=== PATIENT | female | born 1985 | race American Indian/Alaskan Native ===

== ENCOUNTER 2020-09-14 15:11 | Emergency (ER) | payer SELFPAY ==
--- NOTE | 2020-09-14 17:10 | Event Note ---
ED Screening Note Date of service: 09/14/20 Time: 17:09 ED Screening Note: Patient complains of right sided abdominal pain States she was having right flank pain about 3 weeks ago was seen by her doctor on 08/30/2020 and treated for UTI-patient unsure of the name of antibiotic States pain improved and then worsened after 2 days after completing antibiotics History of kidney stones and states this pain feels similar This initial assessment/diagnostic orders/clinical plan/treatment(s) is/are subject to change based on patients health status, clinical progression and re- assessment by fellow clinical providers in the ED. Further treatment and workup at subsequent clinical providers discretion. Patient/guardian urged not to elope from the ED as their condition may be serious if not clinically assessed and managed. Initial orders include: Labs CT scan likely
[2020-09-14 17:32] LABS: Mean Corpuscular HGB Conc 30 % (30-34); Platelet Count 615 K/mm3 (140-440)
[2020-09-14 17:33] LABS: Hematocrit 28.2 % (30.3-42.9); Hemoglobin 8.3 gm/dl (10.1-14.3); Mean Corpuscular Volume 64 fl (79-97); Red Cell Distribution Width 20.7 % (13.2-15.2)
[2020-09-14 17:46] LABS: Alanine Aminotransferase 9 units/L (7-56); Albumin 3.1 g/dL (3.9-5); Blood Urea Nitrogen 6 mg/dL (7-17); Calcium 8.5 mg/dL (8.4-10.2); Hemolysis Index 0
[2020-09-14] MEDS ORDERED: SODIUM CHLORIDE 0.9% 1000 ML 1,000 ML IV ONE ×2 (17:48→21:55)
[2020-09-14] MEDS ORDERED: MORPHINE 4 MG/1 ML INJ IV ONE (17:48)
[2020-09-14] MEDS ORDERED: KETOROLAC 30 MG/1 ML INJ IV ONE (17:48)
[2020-09-14] MEDS ORDERED: ONDANSETRON 4 MG/2 ML INJ IV ONE (17:48)
[2020-09-14 17:51] LABS: BUN/Creatinine Ratio 10
[2020-09-14] MEDS ORDERED: PIPERACIL/TAZOBACTA 4.5/NS 100 4.5 GM/100 ML VIAL IV ONE (17:54)
[2020-09-14] MEDS ORDERED: SODIUM CHLORIDE 0.9% 1000 ML IV SOLN IV ONE (17:55)
--- NOTE | 2020-09-14 17:58 | Emergency Department Report ---
<SAM PERALTA - Last Filed: 09/14/20 21:56> ED Abdominal Pain HPI - General Chief Complaint: Abdominal Pain Stated Complaint: ABD PAIN Time Seen by Provider: 09/14/20 17:09 - Related Data Previous Rx's Medication Instructions Recorded Last Taken Type Acetaminophen/Codeine 1 tab PO Q6H PRN #15 tab 04/21/14 Unknown Rx [Acetaminophen-Codeine #3 TAB] Cyclobenzaprine [Flexeril 10mg] 10 mg PO TID PRN #15 tablet 04/21/[address] [Clifford Bassett] 75 mg PO TID #21 tablet 04/21/14 Unknown Rx Allergies Allergy/AdvReac Type Severity Reaction Status Date / Time No Known Allergies Allergy Unverified 04/21/14 16:29 ED Past Medical Hx - Medications Home Medications: Home Medications Medication Instructions Recorded Confirmed Last Taken Type Acetaminophen/Codeine 1 tab PO Q6H PRN #15 tab 04/21/14 Unknown Rx [Acetaminophen-Codeine #3 TAB] Cyclobenzaprine [Flexeril 10mg] 10 mg PO TID PRN #15 tablet 04/21/[address] [Clifford Bassett] 75 mg PO TID #21 tablet 04/21/14 Unknown Rx ED Course - Reevaluation(s) Reevaluation #1: 09/14/20 21:58 Patient found to have evidence of SIRS/sepsis systemic inflammatory response syndrome, with obstructive hydronephrosis. This is an emergent medical/surgical condition, which cannot be definitively managed at this hospital, as we do not have urology available for consultation. I have gone back and personally evaluated the patient, and counseled her regarding her CT scan findings and laboratory studies. We have recommended emergent transfer for urologic consultation, which we are not able to provide at this hospital. We do not have urology available for ER consultation. Patient has provided consent for transfer for definitive care. Physician assistant Reveles has coordinated with urologist, Dr. Mabry at [facility], for transfer for definitive services not available. Currently, the patient is comfortable, resting comfortably, hemodynamically stable, protecting her airway, and suitable for medical transportation for definitive care. ED Medical Decision Making - Lab Data Result diagrams: 09/14/20 17:04 09/14/20 17:04 Vital Signs 09/14/20 09/14/20 15:23 20:28 Temperature 98.2 F Pulse Rate 121 H 96 H Respiratory 16 16 Rate Blood Pressure 110/67 [Right] O2 Sat by Pulse 100 100 Oximetry Lab Results 09/14/20 09/14/20 09/14/20 Range/Units 17:04 17:04 17:04 WBC 18.8 H (4.5-11.0) K/mm3 RBC 4.40 (3.65-5.03) M/mm3 Hgb 8.3 L (10.1-14.3) gm/dl Hct 28.2 L (30.3-42.9) % MCV 64 L (79-97) fl MCH 19 L (28-32) pg MCHC 30 (30-34) % RDW 20.7 H (13.2-15.2) % Plt Count 615 H (140-440) K/mm3 Add Manual Diff Complete Total Counted 100 Seg Neutrophils % [employer] Specialist Seg Neuts % (Manual) 93.0 H (40.0-70.0) % Lymphocytes % (Manual) 4.0 L (13.4-35.0) % Monocytes % (Manual) 3.0 (0.0-7.3) % Promyelocytes % 0 % Nucleated RBC % Not Reportable Seg Neutrophils # Man 17.5 H (1.8-7.7) K/mm3 Band Neutrophils # 0.0 K/mm3 Lymphocytes # (Manual) 0.8 L (1.2-5.4) K/mm3 Abs React Lymphs (Man) 0.0 K/mm3 Monocytes # (Manual) 0.6 (0.0-0.8) K/mm3 Eosinophils # (Manual) 0.0 (0.0-0.4) K/mm3 Basophils # (Manual) 0.0 (0.0-0.1) K/mm3 Metamyelocytes # 0.0 K/mm3 Myelocytes # 0.0 K/mm3 Promyelocytes # 0.0 K/mm3 Blast Cells # 0.0 K/mm3 WBC Morphology Not Reportable Hypersegmented Neuts Not Reportable Hyposegmented Neuts Not Reportable Hypogranular Neuts Not Reportable Smudge Cells Not Reportable Toxic Granulation Not Reportable Toxic Vacuolation Not Reportable Dohle Bodies Not Reportable Pelger-Huet Anomaly Not Reportable Lakshmi Rods Not Reportable Platelet Estimate Consistent w auto Clumped Platelets Not Reportable Plt Clumps, EDTA Not Reportable Large Platelets Not Reportable Giant Platelets Not Reportable Platelet Satelliting Not Reportable Plt Morphology Comment Not Reportable RBC Morphology Not Reportable Dimorphic RBCs Not Reportable Polychromasia Not Reportable Hypochromasia 2+ Poikilocytosis Not Reportable Anisocytosis 1+ Microcytosis Not Reportable Macrocytosis Not Reportable Spherocytes Not Reportable Pappenheimer Bodies Not Reportable Sickle Cells Not Reportable Target Cells Not Reportable Tear Drop Cells Not Reportable Ovalocytes Not Reportable Helmet Cells Not Reportable Brito-Choteau Bodies Not Reportable Wink Rings Not Reportable Thuy Cells Not Reportable Bite Cells Not Reportable Crenated Cell Not Reportable Elliptocytes Not Reportable Acanthocytes (Spur) Not Reportable Rouleaux Not Reportable Hemoglobin C Crystals Not Reportable Schistocytes Not Reportable Malaria parasites Not Reportable Luke Bodies Not Reportable Hem Pathologist Commnt No Sodium 132 L (137-145) mmol/L Potassium 3.7 (3.6-5.0) mmol/L Chloride 100.1 (98-107) mmol/L Carbon Dioxide 24 (22-30) mmol/L Anion Gap 12 mmol/L BUN 6 L (7-17) mg/dL Creatinine 0.6 (0.6-1.2) mg/dL Estimated GFR > 60 ml/min BUN/Creatinine Ratio 10 % Glucose 102 H (65-100) mg/dL Lactic Acid (0.7-2.0) mmol/L Calcium 8.5 (8.4-10.2) mg/dL Total Bilirubin 0.20 (0.1-1.2) mg/dL AST 11 (5-40) units/L ALT 9 (7-56) units/L Alkaline Phosphatase 113 (35-129) units/L Total Protein 8.9 H (6.3-8.2) g/dL Albumin 3.1 L (3.9-5) g/dL Albumin/Globulin Ratio 0.5 % HCG, Quant < 2 (0-4) mIU/mL Urine Color (Yellow) Urine Turbidity (Clear) Urine pH (5.0-7.0) Ur Specific [place] (1.003-1.030) Urine Protein (Negative) mg/dL Urine Glucose (UA) (Negative) mg/dL Urine Ketones (Negative) mg/dL Urine Blood (Negative) Urine Nitrite (Negative) Urine Bilirubin (Negative) Urine Urobilinogen (<2.0) mg/dL Ur Leukocyte Esterase (Negative) Urine WBC (Auto) (0.0-6.0) /HPF Urine RBC (Auto) (0.0-6.0) /HPF U Epithel Cells (Auto) (0-13.0) /HPF 09/14/20 09/14/20 Range/Units 18:01 Unknown WBC (4.5-11.0) K/mm3 RBC (3.65-5.03) M/mm3 Hgb (10.1-14.3) gm/dl Hct (30.3-42.9) % MCV (79-97) fl MCH (28-32) pg MCHC (30-34) % RDW (13.2-15.2) % Plt Count (140-440) K/mm3 Add Manual Diff Total Counted Seg Neutrophils % Seg Neuts % (Manual) (40.0-70.0) % Lymphocytes % (Manual) (13.4-35.0) % Monocytes % (Manual) (0.0-7.3) % Promyelocytes % % Nucleated RBC % Seg Neutrophils # Man (1.8-7.7) K/mm3 Band Neutrophils # K/mm3 Lymphocytes # (Manual) (1.2-5.4) K/mm3 Abs React Lymphs (Man) K/mm3 Monocytes # (Manual) (0.0-0.8) K/mm3 Eosinophils # (Manual) (0.0-0.4) K/mm3 Basophils # (Manual) (0.0-0.1) K/mm3 Metamyelocytes # K/mm3 Myelocytes # K/mm3 Promyelocytes # K/mm3 Blast Cells # K/mm3 WBC Morphology Hypersegmented Neuts Hyposegmented Neuts Hypogranular Neuts Smudge Cells Toxic Granulation Toxic Vacuolation Dohle Bodies Pelger-Huet Anomaly Lakshmi Rods Platelet Estimate Clumped Platelets Plt Clumps, EDTA Large Platelets Giant Platelets Platelet Satelliting Plt Morphology Comment RBC Morphology Dimorphic RBCs Polychromasia Hypochromasia Poikilocytosis Anisocytosis Microcytosis Macrocytosis Spherocytes Pappenheimer Bodies Sickle Cells Target Cells Tear Drop Cells Ovalocytes Helmet Cells Brito-Choteau Bodies Wink Rings Thuy Cells Bite Cells Crenated Cell Elliptocytes Acanthocytes (Spur) Rouleaux Hemoglobin C Crystals Schistocytes Malaria parasites Luke Bodies Hem Pathologist Commnt Sodium (137-145) mmol/L Potassium (3.6-5.0) mmol/L Chloride (98-107) mmol/L Carbon Dioxide (22-30) mmol/L Anion Gap mmol/L BUN (7-17) mg/dL Creatinine (0.6-1.2) mg/dL Estimated GFR ml/min BUN/Creatinine Ratio % Glucose (65-100) mg/dL Lactic Acid 1.20 (0.7-2.0) mmol/L Calcium (8.4-10.2) mg/dL Total Bilirubin (0.1-1.2) mg/dL AST (5-40) units/L ALT (7-56) units/L Alkaline Phosphatase (35-129) units/L Total Protein (6.3-8.2) g/dL Albumin (3.9-5) g/dL Albumin/Globulin Ratio % HCG, Quant (0-4) mIU/mL Urine Color Yellow (Yellow) Urine Turbidity Cloudy (Clear) Urine pH 8.0 H (5.0-7.0) Ur Specific [place] 1.012 (1.003-1.030) Urine Protein 30 mg/dl (Negative) mg/dL Urine Glucose (UA) Neg (Negative) mg/dL Urine Ketones Neg (Negative) mg/dL Urine Blood Neg (Negative) Urine Nitrite Neg (Negative) Urine Bilirubin Neg (Negative) Urine Urobilinogen < 2.0 (<2.0) mg/dL Ur Leukocyte Esterase Lg (Negative) Urine WBC (Auto) > 182.0 H (0.0-6.0) /HPF Urine RBC (Auto) 10.0 (0.0-6.0) /HPF U Epithel Cells (Auto) 2.0 (0-13.0) /HPF - Radiology Data Radiology results: report reviewed, image reviewed CT abdomen pelvis w con INDICATION / CLINICAL INFORMATION: right sided abd pain, right CVAT, leukocytosis. TECHNIQUE: Routine CT abdomen and pelvis with contrast All CT scans at this location are performed using CT dose reduction for ALARA by means of automated exposure control. COMPARISON: None available. FI NDINGS: Abdomen and pelvis: The lower lungs are clear. The liver, spleen, pancreas adrenal glands are unremarkable. The gallbladder is unremarkable. There is moderate right hydroureteronephrosis secondary to a large obstructive 5 mm calculus just beyond the right ureteropelvic junction. The left kidney is unremarkable. The appendix is unremarkable. Review of bone windows demonstrates minimal thoracolumbar degenerative changes. IMPRESSION: Moderate to severe right hydroureteronephrosis secondary to a large obstructive 5 mm calculus just beyond the right ureteropelvic junction. In addition there is significant enhancement throughout much of the right ureter even beyond the obstructive level distally. Underlying ureteral infection is difficult to exclude. Signer Name: Miguel Mandujano MD Signed: 09/14/2020 7:48 PM Workstation Name: [id number] Critical Care Time: Yes Critical care time in (mins) excluding proc time.: 35 ED Disposition Clinical Impression: SIRS (systemic inflammatory response syndrome), Hydronephrosis due to obstruction of ureter, Right nephrolithiasis Disposition: DC/ SHRT-TRM GEN HOSP IP Is pt being admited?: No Does the pt Need Aspirin: No Condition: Stable Instructions: Abdominal Pain (ED) Referrals: PRIMARY CARE, [Primary Care Provider] - 3-5 Days <MISHA REVELES - Last Filed: 09/15/20 00:38> ED Abdominal Pain HPI - General Source: patient Mode of arrival: Ambulatory Limitations: No Limitations - History of Present Illness Initial Comments: Patient is a 35-year-old female presents emergency room with complaints of righ t-sided abdominal pain that began 3 days ago. She states that on August 30 she was diagnosed with a UTI by her primary care doctor and started on antibiotics. She states that she is not sure what she was taking. She states that she had right flank pain at that time. She states that the flank pain resolved after taking the antibiotics but 3 days ago she began having right-sided abdominal pain. She has associated nausea and vomiting that began today. She states that she had 2 episodes of vomiting. She denies any fever, diarrhea, abnormal vaginal discharge. She has a past medical history of nephrolithiasis, anemia, ankylosing spondylitis. No allergies to medications. She states that she is currently on her menstrual cycle. Severity scale (0 -10): 10 ED Review of Systems ROS: Stated complaint: ABD PAIN Other details as noted in HPI Comment: All other systems reviewed and negative ED Past Medical Hx - Past Medical History Previous Medical History?: Yes Hx Kidney Stones: Yes Additional medical history: Anemia - Social History Smoking Status: Never Smoker Substance Use Type: None ED Physical Exam - General Limitations: No Limitations General appearance: alert, in no apparent distress - Head Head exam: Present: atraumatic, normocephalic - Eye Eye exam: Present: normal appearance - ENT ENT exam: Present: mucous membranes moist - Respiratory Respiratory exam: Present: normal lung sounds bilaterally. Absent: respiratory distress, wheezes, rales, rhonchi, stridor, chest wall tenderness, accessory muscle use, decreased breath sounds, prolonged expiratory - Cardiovascular Cardiovascular Exam: Present: normal rhythm, tachycardia, normal heart sounds. Absent: systolic murmur, diastolic murmur, rubs, gallop - GI/Abdominal GI/Abdominal exam: Present: soft, tenderness (generalized right sided ), normal bowel sounds. Absent: distended, guarding, rebound, rigid - Back Exam Back exam: Present: CVA tenderness (R). Absent: CVA tenderness (L) - Neurological Exam Neurological exam: Present: alert, oriented X3 - Psychiatric Psychiatric exam: Present: normal affect, normal mood - Skin Skin exam: Present: warm, dry, intact ED Course Vital Signs 09/14/20 09/14/20 09/14/20 15:23 20:28 22:34 Temperature 98.2 F 98 F Pulse Rate 121 H 96 H 97 H Respiratory 16 16 18 Rate Blood Pressure 110/67 129/98 [Right] O2 Sat by Pulse 100 100 100 Oximetry - Consultations Consultation #1: 09/14/20 21:28 spoke with the [facility] Transfer line awaiting call back 09/14/20 21:[address] Mabry, urology, advised to emergently transfer patient to [facility], he reports that he will likely place a stent, advised to keep patient n.p.o. ED Medical Decision Making - Lab Data Result diagrams: 09/14/20 17:04 09/14/20 17:04 Vital Signs 09/14/20 09/14/20 09/14/20 15:23 20:28 22:34 Temperature 98.2 F 98 F Pulse Rate 121 H 96 H 97 H Respiratory 16 16 18 Rate Blood Pressure 110/67 129/98 [Right] O2 Sat by Pulse 100 100 100 Oximetry - Radiology Data Radiology results: report reviewed, image reviewed - Medical Decision Making Patient is a 35-year-old female presents emergency room with complaints of right-sided abdominal pain that began 3 days ago. She states that on August 30 she was diagnosed with a UTI by her primary care doctor and started on antibiotics. She states that she is not sure what she was taking. She states that she had right flank pain at that time. She states that the flank pain resolved after taking the antibiotics but 3 days ago she began having right- sided abdominal pain. She has associated nausea and vomiting that began today. She states that she had 2 episodes of vomiting. She denies any fever, diarrhea, abnormal vaginal discharge. She has a past medical history of nephrolithiasis, anemia, ankylosing spondylitis. No allergies to medications. She states that she is currently on her menstrual cycle. Initial vitals with tachycardia which improved upon repeat. On exam: Generalized right-sided abdominal tenderness palpation, right CVA tenderness. Labs significant for white blood cell count of 18.8. Sepsis protocol initiated, patient given the appropriate fluids and Zosyn. UA shows evidence of significant UTI, there is greater than [address] abdomen pelvis with IV contrast:IMPRESSION: Moderate to severe right hydroureteronephrosis secondary to a large obstructive 5 mm calculus just beyond the right ureteropelvic junction. In addition there is significant enhancement throughout much of the right ureter even beyond the obstructive level distally. Underlying ureteral infection is difficult to exclude.this facility does not have urology implementation consultant, patient will need to be transferred for specialized care. Spoke with Dr. Mabry, urology, advised to emergently transfer patient to [facility], he reports that he will likely p lace a stent, advised to keep patient n.p.o. discussed case with Dr. Peralta, ER attending who was agreeable with plan and also evaluated patient, please see his note. Patient transported via EMS. - Differential Diagnosis UTI, pyelonephritis, nephrolithiasis, renal abscess, colitis Critical care attestation.: If time is entered above; I have spent that time in minutes in the direct care of this critically ill patient, excluding procedure time. ED Disposition Is pt being admited?: No Does the pt Need Aspirin: No
[2020-09-14 18:11] LABS: Total Cells Counted 100
[2020-09-14 18:13] LABS: Anisocytosis 1+; Hypochromasia 2+; Platelet Estimate Consistent w Auto
[2020-09-14 19:35] LABS: Bilirubin,Urine NEG (Negative); Blood,Urine NEG (Negative); Color,Urine Yellow (Yellow); Urobilinogen,Urine < 2.0 mg/dL (<2.0)
[2020-09-14 19:36] LABS: WBC,Urine > 182.0 /HPF (0.0-6.0)
--- NOTE | 2020-09-14 20:53 | Cat Scan Report ---
CT abdomen pelvis w con INDICATION / CLINICAL INFORMATION: right sided abd pain, right CVAT, leukocytosis. TECHNIQUE: Routine CT abdomen and pelvis with contrast All CT scans at this location are performed using CT dose reduction for ALARA by means of automated exposure control. COMPARISON: None available. FINDINGS: Abdomen and pelvis: The lower lungs are clear. The liver, spleen, pancreas adrenal glands are unremarkable. The gallbladder is unremarkable. There i s moderate right hydroureteronephrosis secondary to a large obstructive 5 mm calculus just beyond the right ureteropelvic junction. The left kidney is unremarkable. The appendix is unremarkable. Review of bone windows demonstrates mi nimal thoracolumbar degenerative changes. IMPRESSION: Moderate to severe right hydroureteronephrosis secondary to a large obstructive 5 mm calculus just be yond the right ureteropelvic junction. In addition there is significant enhancement throughout much o f the right ureter even beyond the obstructive level distally. Underlying ureteral infection is diffi cult to exclude. Signer Name: Miguel Mandujano MD Signed: 09/14/2020 8:48 PM Workstation Name: [id number]
[2020-09-14] MEDS ORDERED: HYDROmorphone 1 MG/1 ML INJ IV ONE (21:55)
[2020-09-15 01:20] VITALS: BP 104/71
== END 2020-09-15 01:17 | disposition short-term general hospital (02) ==
LOC: ED 15:11
DX: N13.1 Hydronephrosis with ureteral stricture, not elsewhere classified (principal); N20.0 Calculus of kidney; R65.10 Systemic inflammatory response syndrome (SIRS) of non-infectious origin without acute organ dysfunction; Z79.899 Other long term (current) drug therapy
CPT/HCPCS: 36415; 74177; 80053; 81001; 82140; 84702; 85007; 85025; 87040; 87086; 96361; 96374; 96375; 99285; J1170; J1885; J2270; J2405; J2543; J7030; Q9967